=== PATIENT | female | born 1955 | race Caucasian/White ===

== ENCOUNTER → 2021-10-08 | Outpatient (CLI) | payer SELFPAY ==
[~2021-10-08] MED LIST: BAMLANIVIMAB (EUA) 700 MG, ETESEVIMAB (EUA) 1,400 MG in SODIUM CHLORIDE 0.9% 50 ML IVPB ONE; SODIUM CHLORIDE 0.9% 50 ML IVPB ONE; SODIUM CHLORIDE 0.9% 500 ML 500 ML in EMPTY BAG 1 BAG IV PRN
[2021-10-08 08:16] VITALS: RESP 16
[2021-10-08 09:08] VITALS: BP 131/64; PULSE 58; TEMP 97.8
== END ==
LOC: PROCWHC3 07:14
PROVIDERS: ATTEND Nurse Practitioner Adult Health
DX: U07.1 COVID-19 (principal)
CPT/HCPCS: 96360; J3490; M0245

== ENCOUNTER 2023-03-12 09:30 | Emergency (ER) | payer MEDICARE, OTHER ==
[2023-03-12] MEDS ORDERED: MORPHINE SULFATE 2 MG/ML SYRINGE IM STA (09:45)
[2023-03-12] MEDS ORDERED: LIDOCAINE 5% PATCH TOPICAL ONE (09:45)
[2023-03-12] MEDS ORDERED: KETOROLAC 15 MG/ML 1 ML VIAL IM STA (09:45)
--- NOTE | 2023-03-12 09:56 | ED ---
Back Pain HPI - General Chief Complaint: Back Pain/Injury Stated Complaint: Lower Back Pain Time Seen by Provider: 03/12/23 09:34 Source: patient, family, RN notes reviewed Limitations: no limitations - History of Present Illness Initial Comments: This is a 67-year-old female who presents to the emergency department for lower back pain. States that she was lifting her dog, who is fairly heavy, into a bath early this morning, when she heard a crack in her lower back. She has since had difficulty moving. Denies any loss of bowel/bladder control or saddle anesthesia. She has not taken anything for pain. Denies any history of similar symptoms in the past. Denies any fevers, chills, sore throat, cough, dyspnea, chest pain, palpitations, abdominal pain, nausea, vomiting, diarrhea, or headaches. MD Complaint: back pain - Related Data Home Medications Medication Instructions Recorded Confirmed Azithromycin 250 mg PO DAILY 10/08/21 10/08/21 dexAMETHasone [Decadron] 6 mg PO DAILY 10/08/21 10/08/21 Previous Rx's Medication Instructions Recorded Baclofen 5 mg PO Q6H PRN #20 tablet 03/12/23 predniSONE 50 mg PO DAILY 5 Days #5 tab 03/12/23 Allergies Allergy/AdvReac Type Severity Reaction Status Date / Time No Known Allergies Allergy Verified 03/12/23 09:34 Review of Systems ROS Statement: Those systems with pertinent positive or pertinent negative responses have been documented in the HPI. ROS Other: All systems not noted in ROS Statement are negative. Past Medical History Past Medical History: No Reported History History of Any Multi-Drug Resistant Organisms: None Reported Past Surgical History: Joint Replacement Smoking Status: Current every day smoker Past Alcohol Use History: None Reported Past Drug Use History: None Reported General Exam Limitations: no limitations General appearance: alert, in distress Head exam: Present: atraumatic, normocephalic, normal inspection Respiratory exam: Present: normal lung sounds bilaterally. Absent: respiratory distress, wheezes, rales, rhonchi, stridor Cardiovascular Exam: Present: regular rate, normal rhythm, normal heart sounds. Absent: systolic murmur, diastolic murmur, rubs, gallop, clicks Back exam: Present: normal inspection, tenderness (Lower lumbar spine) Neurological exam: Present: alert, oriented X3, CN II-XII intact Psychiatric exam: Present: normal affect, normal mood Skin exam: Present: warm, dry, intact, normal color. Absent: rash Course Vital Signs 03/12/23 03/12/23 03/12/23 09:32 10:54 11:36 Temperature 98 F 98.2 F 97.9 F Pulse Rate 79 68 62 Respiratory 24 16 16 Rate Blood Pressure 144/86 116/69 118/64 O2 Sat by Pulse 99 97 97 Oximetry Medical Decision Making - Medical Decision Making This is a 67-year-old female who presents to the emergency department for lower back pain. Was pt. sent in by a medical professional or institution? @ -No Did you speak to anyone other than the patient for history? @ -Her daughter Did you review nursing and triage notes? @ -Yes, and I agree, it is accurate with regards to the patient's symptoms. Were old charts reviewed? @ -No Differential Diagnosis? @ -Differential Back Pain: Strain, zoster, cauda equina syndrome, epidural abscess, vertebral osteomyelitis, discitis, fracture, subluxation, disc herniation, DJD, spinal stenosis, dissection, AAA, pancreatitis, peptic ulcer disease, pyelonephritis, kidney stone, this is not meant to be an all-inclusive list. X-rays interpreted by me (1pt min.)? @ -X-ray of the lumbar spine obtained. My interpretation reveals no acute fractures or dislocations. What testing was considered but not performed? (CT, X-rays, U/S, labs)? Why? @ -None What meds were considered but not given? Why? @ -None Did you discuss the management of the patient with other professionals? @ -No Did you reconcile home meds? @ -No Was smoking cessation discussed for >3mins.? @ -No Was critical care preformed (if so, how long)? @ -No Were there social determinants of health that impacted care today? How? (Homelessness, low income, unemployed, alcoholism, drug addiction, transportation, low edu. Level, literacy, decrease access to med. care, [facility], rehab)? @ -No Was there de-escalation of care discussed even if they declined? (Discuss DNR or withdrawal of care, Hospice)? @ -No What co-morbidities impacted this encounter? (DM, HTN, Smoking, COPD, CAD, Cancer, CVA, Hep., AIDS, mental health diagnosis, sleep apnea, morbid obesity)? @ -None Was patient admitted / discharged? @ -Discharged. Lab work obtained and found to be nonactionable. Patient has no red flag symptoms such as loss of bowel/bladder control or saddle anesthesia. Pain was controlled the emergency department with Toradol, morphine, and a lidocaine patch. She was able to ambulate without as much difficulty after medication administration. Prescription for prednisone and baclofen provided with dosing instructions reviewed. She is instructed to avoid taking over the counter antiinflammatories when taking the Prednisone and to only take it with Tylenol. Also advised that the baclofen can be sedating and she should avoid driving or operating machinery when taking this and to take it at night until she knows how it effects her. Also instructed her to apply ice for 15-20 minutes every 2-3 hours and to bend with the knees as opposed to at the waist. Undiagnosed new problem with uncertain prognosis? @ -None Drug Therapy requiring intensive monitoring for toxicity (Heparin, Nitro, Insulin, Cardizem)? @ -None Were any procedures done? @ -None Diagnosis/symptom? @ -Lumbar strain Acute, or Chronic, or Acute on Chronic? @ -Acute Uncomplicated (without systemic symptoms) or Complicated (systemic symptoms)? @ -Uncomplicated Side effects of treatment? @ -None Exacerbation, Progression, or Severe Exacerbation] @ -Not applicable Poses a threat to life or bodily function? @ -The pain may temporarily limit her mobility. Return precautions reviewed in depth, the patient is instructed to return to the emergency department with any new, worsening, or concerning symptoms. Patient verbalized understanding. This case was discussed in detail with the attending ED physician, Dr. Conroy. Presentation, findings, and treatment plan discussed in detail as well. - Radiology Data Radiology results: report reviewed, image reviewed Disposition Clinical Impression: Strain of lumbar region Disposition: HOME SELF-CARE Instructions (If sedation given, give patient instructions): Low Back Strain (ED), Acute Low Back Pain (ED) Additional Instructions: Return to the emergency department with any new, worsening, or concerning symptoms. Take the prednisone daily for 5 days. Do not take any zutt-ctq-bydayad anti-inflammatories such as ibuprofen while taking the prednisone. You may take this with Tylenol. You can take the baclofen as 1-2 tablets 3-4 times daily. Be aware that this may be sedating and you should take it at night until you know how it affects you. You should also avoid driving or operating machinery when taking this. Make sure that you get plenty of rest and bend at the knees as opposed to bending at the waist. Follow up with your primary care provider in 1-2 days. Prescriptions: Baclofen 5 mg PO Q6H PRN #20 tablet PRN Reason: Pain predniSONE 50 mg PO DAILY 5 Days #5 tab Is patient prescribed a controlled substance at d/c from ED?: No Referrals: None,Stated [Primary Care Provider] - 1-2 days
--- NOTE | 2023-03-12 10:42 | XR ---
EXAMINATION TYPE: XR lumbar spine 2 or 3V DATE OF EXAM: 03/12/2023 CLINICAL HISTORY: Low back pain. TECHNIQUE: Frontal and lateral images of the lumbar spine are obtained. COMPARISON: None. FINDINGS: Osseous structures are demineralized. There are 5 lumbar type vertebral bodies identified. The lumbar spine shows satisfactory alignment without evidence of acute fracture or dislocation. Nikolas tebral body heights and disk space heights are within normal limits. Metallic hardware from left hip surgery is partially imaged. [id number] overlying arterial vascular calcification is present. IMPRESSION: As above.
[2023-03-12 10:57] VITALS: RESP 16
[2023-03-12] MEDS ORDERED: ACET/COD 300 MG/30 MG STARTER PACK 6 TAB BTL PO STA (11:25)
[2023-03-12 11:38] VITALS: BP 118/64; PULSE 62; TEMP 97.9
== END 2023-03-12 11:38 | disposition home or self-care (01) ==
LOC: EC 09:30
DX: S39.012A Strain of muscle, fascia and tendon of lower back, initial encounter (principal); F17.200 Nicotine dependence, unspecified, uncomplicated; X50.0XXA Overexertion from strenuous movement or load, initial encounter
CPT/HCPCS: 72100; 99284; 96372 ×2; J2270; J1885

== ENCOUNTER 2023-03-18 13:26 | Emergency (ER) | payer MEDICARE ==
[2023-03-18] MEDS ORDERED: LIDOCAINE 5% PATCH TOPICAL STA (14:02)
[2023-03-18] MEDS ORDERED: MORPHINE SULFATE 2 MG/ML SYRINGE IM STA (14:02)
[2023-03-18] MEDS ORDERED: KETOROLAC 15 MG/ML 1 ML VIAL IM STA (14:03)
--- NOTE | 2023-03-18 14:53 | CT ---
EXAMINATION TYPE: CT abdomen pelvis wo con CT DLP: 358.3 mGycm, Automated exposure control for dose reduction was used. DATE OF EXAM: 03/18/2023 2:40 PM COMPARISON: Radiograph 03/12/2023 CLINICAL INDICATION:Female, 67 years old with history of pain; Back pain, lumbosacral region TECHNIQUE: Axial CT of the abdomen and pelvis. Sagittal and coronal reformats were created on a [employer] workstation. Contrast used: None Oral contrast used: without Oral Contrast FINDINGS: LOWER CHEST: Unremarkable ABDOMEN LIVER: Unremarkable GALLBLADDER AND BILE DUCTS: Unremarkable. PANCREAS: Unremarkable. SPLEEN: Unremarkable. ADRENAL GLANDS: Unremarkable. KIDNEYS AND URETERS: No evidence of hydronephrosis or renal calculus. The ureters are unremarkable. PELVIS BLADDER: Unremarkable REPRODUCTIVE: Unremarkable. ABDOMEN & PELVIS STOMACH AND BOWEL: No evidence of bowel obstruction. PERITONEUM/RETROPERITONEUM: No evidence of pneumoperitoneum or free fluid. VASCULATURE: Moderate atherosclerotic calcifications are present throughout the abdominal aorta and i ts branches. No evidence of aortic aneurysm. MUSCULOSKELETAL: Compression deformity of the L5 vertebrae with cortical buckling. There is at least 25% height loss. Minimal posterior retrolisthesis of 3 mm. The neural foramen and spinal canal appear patent to cerebral hip fixation hardware appears intact. LYMPH NODES: No gross evidence for lymphadenopathy. SOFT TISSUE/ABDOMINAL WALL: Unremarkable IMPRESSION: Acute/subacute L5 vertebral body compression fracture with at least 25% height loss. No significant s charo canal neural foraminal stenosis. Finding appears new from 03/12/2023.
[2023-03-18 15:10] VITALS: BP 150/78; PULSE 64; RESP 16; TEMP 98.1
--- NOTE | 2023-03-18 15:17 | ED ---
General Adult HPI - General Chief complaint: Back Pain/Injury Stated complaint: Back pain Time Seen by Provider: 03/18/23 13:49 Source: patient, RN notes reviewed Mode of arrival: ambulatory Limitations: no limitations - History of Present Illness Initial comments: 67-year-old female presents emergency Department with chief complaint of low back pain. She states that it started after she bent over and picked her dog up on 03/12/23. She was seen here for the same problem. X-ray lumbar spine at that time was within normal limits. Patient was given baclofen at that time which did not help with her pain. She states that she was given a starter pack for Tylenol 3s which helped her pain. She states that she is unable to lay down because of the pain. She states the pain is worse with walking and radiates down her right leg. Denies fever, numbness, tingling. Denies loss of bowel or bladder function, denies saddle anesthesia. - Related Data Home Medications Medication Instructions Recorded Confirmed Azithromycin 250 mg PO DAILY 10/08/21 10/08/21 dexAMETHasone [Decadron] 6 mg PO DAILY 10/08/21 10/08/21 Previous Rx's Medication Instructions Recorded Baclofen 5 mg PO Q6H PRN #20 tablet 03/12/23 predniSONE 50 mg PO DAILY 5 Days #5 tab 03/12/23 Acetaminophen-Codeine 300-30mg 1 tab PO Q4H PRN 3 Days #18 tablet 03/18/23 [Tylenol w/codeine #3] Lidocaine 5% Patch [Lidoderm 5% 1 patch TOPICAL DAILY #5 patch 03/18/23 Patch] Allergies Allergy/AdvReac Type Severity Reaction Status Date / Time No Known Allergies Allergy Verified 03/18/23 13:45 Review of Systems ROS Statement: Those systems with pertinent positive or pertinent negative responses have been documented in the HPI. ROS Other: All systems not noted in ROS Statement are negative. Past Medical History Past Medical History: No Reported History History of Any Multi-Drug Resistant Organisms: None Reported Past Surgical History: Joint Replacement Past Psychological History: No Psychological Hx Reported Smoking Status: Current every day smoker Past Alcohol Use History: None Reported Past Drug Use History: None Reported General Exam Limitations: no limitations General appearance: alert, in no apparent distress Head exam: Present: atraumatic, normocephalic, normal inspection Eye exam: Present: normal appearance, PERRL, EOMI. Absent: scleral icterus, conjunctival injection, periorbital swelling ENT exam: Present: normal exam, mucous membranes moist Neck exam: Present: normal inspection. Absent: tenderness, meningismus, lymphadenopathy Respiratory exam: Present: normal lung sounds bilaterally. Absent: respiratory distress, wheezes, rales, rhonchi, stridor Cardiovascular Exam: Present: regular rate, normal rhythm, normal heart sounds. Absent: systolic murmur, diastolic murmur, rubs, gallop, clicks GI/Abdominal exam: Present: soft, normal bowel sounds. Absent: distended, tenderness, guarding, rebound, rigid Extremities exam: Present: normal inspection, full ROM, normal capillary refill. Absent: tenderness, pedal edema, joint swelling, calf tenderness Back exam: Present: vertebral tenderness (Point tenderness over L-spine). Absent: full ROM Neurological exam: Present: alert, oriented X3, CN II-XII intact Psychiatric exam: Present: normal affect, normal mood Skin exam: Present: warm, dry, intact, normal color. Absent: rash Course Vital Signs 03/18/23 03/18/23 13:45 15:09 Temperature 98.2 F 98.1 F Pulse Rate 70 64 Respiratory 18 16 Rate Blood Pressure 176/80 150/78 O2 Sat by Pulse 95 96 Oximetry Medical Decision Making - Medical Decision Making Was pt. sent in by a medical professional or institution (Dr. PA, [employer], urgent care, hospital, or fpc...) When possible be specific @ -No Did you speak to anyone other than the patient for history (EMS, parent, family, police, friend...)? What history was obtained from this source @ -No Did you review nursing and triage notes (agree or disagree)? Why? @ -I reviewed and agree with nursing and triage notes Were old charts reviewed (outside hosp., previous admission, EMS record, old EKG, old radiological studies, urgent care reports/EKG's, fpc records)? Report findings @ -Reports from prior visit on 03/12 reviewed Differential Diagnosis (chest pain, altered mental status, abdominal pain women, abdominal pain men, vaginal bleeding, weakness, fever, dyspnea, syncope, headache, dizziness, GI bleed, back pain, seizure, CVA, palpatations, mental health, musculoskeletal)? @ -Differential Musculoskeletal Muscular strain, contusion, ligament sprain, fracture, arthritis, septic arthritis, bursitis, cellulitis, muscle spasm, nerve compression, DVT, arterial occlusion, herpes zoster, electrolyte abnormality, tumor.... This is not meant to be in all inclusive list EKG interpreted by me (3pts min.). @ -None X-rays interpreted by me (1pt min.). @ -None done CT interpreted by me (1pt min.). @ -CT abdomen and pelvis was obtained which showed L5 compression fracture with 25% height loss U/S interpreted by me (1pt. min.). @ -None done What testing was considered but not performed or refused? (CT, X-rays, U/S, labs)? Why? @ -None What meds were considered but not given or refused? Why? @ -None Did you discuss the management of the patient with other professionals (professionals i.e. , PA, [employer], lab, RT, psych nurse, director of social services, steep tender, teacher, health promotion officer, social work case manager)? Give summary @ -No Was smoking cessation discussed for >3mins.? @ -No Was critical care preformed (if so, how long)? @ -No Were there social determinants of health that impacted care today? How? (Homelessness, low income, unemployed, alcoholism, drug addiction, transportation, low edu. Level, literacy, decrease access to med. care, correction, rehab)? @ -No Was there de-escalation of care discussed even if they declined (Discuss DNR or withdrawal of care, Hospice)? DNR status @ -No What co-morbidities impacted this encounter? (DM, HTN, Smoking, COPD, CAD, Cancer, CVA, ARF, Chemo, Hep., AIDS, mental health diagnosis, sleep apnea, morbid obesity)? @ -None Was patient admitted / discharged? Hospital course, mention meds given and route, prescriptions, significant lab abnormalities, going to OR and other pertinent info. @ -Discharged. Patient sent in the emergency department with back pain 1 week. Patient administered 2 mg IM morphine and 15 mg of Toradol Computed tomography scan of the abdomen and pelvis showed L5 compression fracture with 25% height loss. Patient was given prescription for Tylenol #3 x3 days. Patient advised to follow-up with orthopedic and her primary care provider. Undiagnosed new problem with uncertain prognosis? @ -No Drug Therapy requiring intensive monitoring for toxicity (Heparin, Nitro, Insulin, Cardizem)? @ -No Were any procedures done? @ -No Diagnosis/symptom? @ -Compression fracture Acute, or Chronic, or Acute on Chronic? @ -Acute Uncomplicated (without systemic symptoms) or Complicated (systemic symptoms)? @ -Uncomplicated Side effects of treatment? @ -No Exacerbation, Progression, or Severe Exacerbation? @ -No Poses a threat to life or bodily function? How? (Chest pain, [place], [place], pneumonia, PE, COPD, DKA, ARF, appy, cholecystitis, CVA, Diverticulitis, Homicidal, Suicidal, threat to staff... and all critical care pts) @ -No Disposition Clinical Impression: Compressed spine fracture Disposition: HOME SELF-CARE Condition: Stable Instructions (If sedation given, give patient instructions): Acute Low Back Pain (ED) Additional Instructions: Please return to the Emergency Department if symptoms worsen or any other concerns. Prescriptions: Lidocaine 5% Patch [Lidoderm 5% Patch] 1 patch TOPICAL DAILY #5 patch Acetaminophen-Codeine 300-30mg [Tylenol w/codeine #3] 1 tab PO Q4H PRN 3 Days #18 tablet PRN Reason: Pain Is patient prescribed a controlled substance at d/c from ED?: Yes If prescribed controlled substance>3 days was MAPS reviewed?: Prescribed <3 Days Referrals: None,Stated [Primary Care Provider] - 1-2 days Brianna Brown DO [Doctor of Osteopathic Medicine] - 1-2 days Time of Disposition: 15:17
== END 2023-03-18 15:31 | disposition home or self-care (01) ==
LOC: EC 13:26
DX: S32.050A Wedge compression fracture of fifth lumbar vertebra, initial encounter for closed fracture (principal); F17.210 Nicotine dependence, cigarettes, uncomplicated; X50.0XXA Overexertion from strenuous movement or load, initial encounter; X50.1XXA Overexertion from prolonged static or awkward postures, initial encounter; Y93.K9 Activity, other involving animal care
CPT/HCPCS: 74176; 99284; 96372; J2270; J1885

== ENCOUNTER 2024-05-26 11:44 | Emergency (ER) | payer MEDICARE ==
[2024-05-26 11:47] VITALS: TEMP 97.3
[2024-05-26 12:37] LABS: Basophils # (A) 0.1 k/uL (0-0.2); Basophils % (A) 0 %; Eosinophils # (A) 0.4 k/uL (0-0.7); Eosinophils % (A) 3 %; HCT 48.3 % (34.0-46.0); HGB 15.2 gm/dL (11.4-16.0); Lymphocytes # (A) 1.3 k/uL (1.0-4.8); Lymphocytes % (A) 11 %; MCH 30.9 pg (25.0-35.0); MCHC 31.4 g/dL (31.0-37.0); MCV 98.6 fL (80.0-100.0); Mean Platelet Volume 7.6; Monocytes # (A) 0.7 k/uL (0-1.0); Monocytes % (A) 6 %; Neutrophils # (A) 9.2 k/uL (1.3-7.7); Neutrophils % (A) 78 %; Platelet Count 486 k/uL (150-450); RDW 12.8 % (11.5-15.5); WBC 11.8 k/uL (3.8-10.6)
[2024-05-26 12:56] LABS: ALT 13 U/L (4-34); AST 25 U/L (14-36); African American GFR (CKD) >90 (>60 ml/min/1.73 sqM); Albumin 4.5 g/dL (3.5-5.0); Alkaline Phosphatase 114 U/L (38-126); Anion Gap 5 mmol/L; Blood Urea Nitrogen 10 mg/dL (7-17); Calcium 9.7 mg/dL (8.4-10.2); Carbon Dioxide 32 mmol/L (22-30); Chloride 102 mmol/L (98-107); Glucose 92 mg/dL (74-99); Non-African American GFR(CKD) >90 (>60 ml/min/1.73 sqM); Potassium 4.7 mmol/L (3.5-5.1); Sodium 139 mmol/L (137-145); Total Bilirubin 0.6 mg/dL (0.2-1.3); Total Protein 7.6 g/dL (6.3-8.2)
--- NOTE | 2024-05-26 12:59 | CT ---
EXAMINATION TYPE: CT abdomen pelvis wo con DATE OF EXAM: 05/26/2024 COMPARISON: 03/18/2023 HISTORY: 69-year-old female upper abd pain CT DLP: 235.5 mGycm. Automated exposure control for dose reduction was used. TECHNIQUE: Contiguous axial scanning of the abdomen and pelvis without IV contrast. Coronal and sagit jessica reconstructions performed. FINDINGS: The heart is normal size without pericardial effusion. Some strandy atelectasis in the lower lungs wi thout pleural effusion. Ectasia of the lower descending thoracic aorta 2.9 cm. Noncontrast appearance of the liver, gallbladder, adrenal glands, kidneys, spleen, and pancreas show no gross abnormality. Markedly limited assessment due to paucity of intra-abdominal fat and lack of c ontrast. No dilated small bowel, free fluid, or free air is seen. Again, very limited assessment due to crowde d and nonopacified structures. There appear to be some air-fluid level involving borderline distended small bowel in the right upper pelvis. Distended up to 2.8 cm. Probably transient. Segments of the normal caliber appendix are note d. Scattered moderate stool. Bladder collapsed. Uterus anteverted. Unable to delineate uterus from ovaries and clustered bowel or lymph nodes. Metal artifact related to the patient's left hip total arthroplasty. There is a new inferior endplate fracture of T12 resulting in minimal anterior wedging. Minimal 15% a nterior height loss. No retropulsion into the spinal canal. Mild paravertebral soft tissue swelling. Mild compression deformity of L5 remains unchanged. IMPRESSION: 1. Acute inferior endplate fracture of T12 resulting in minimal anterior wedging, 15% anterior heigh t loss. No retropulsion into the spinal canal. Mild paravertebral soft tissue swelling. 2. Borderline distended small bowel in the right lower abdomen with air-fluid level. This could be t ransient or could represent a regional ileus/enteritis. 3. Limited, noncontrast exam.
[2024-05-26] MEDS: KETOROLAC 15 MG/ML 1 ML VIAL IVP STA (13:03)
--- NOTE | 2024-05-26 13:13 | ED ---
General Adult HPI - General Chief complaint: Abdominal Pain Stated complaint: Abd pain Time Seen by Provider: 05/26/24 12:01 Source: patient, RN notes reviewed, old records reviewed Mode of arrival: ambulatory Limitations: no limitations - History of Present Illness Initial comments: 69-year-old female presenting with upper abdominal pain which began 3 days ago. This occurred after the patient bent over. She denies associated vomiting. She is having normal bowel movements. She does have previous history of fracture in her back. She denies worsening back pain currently. Denies chest pain or dyspnea - Related Data Home Medications Medication Instructions Recorded Confirmed Azithromycin 250 mg PO DAILY 10/08/21 10/08/21 dexAMETHasone [Decadron] 6 mg PO DAILY 10/08/21 10/08/21 Previous Rx's Medication Instructions Recorded Baclofen 5 mg PO Q6H PRN #20 tablet 03/12/23 predniSONE 50 mg PO DAILY 5 Days #5 tab 03/12/23 Acetaminophen-Codeine 300-30mg 1 tab PO Q4H PRN 3 Days #18 tablet 03/18/23 [Tylenol w/codeine #3] Lidocaine 5% Patch [Lidoderm 5% 1 patch TOPICAL DAILY #5 patch 03/18/23 Patch] HYDROcodone/APAP 5-325MG [[place] 1 tab PO Q6HR PRN #12 tab 05/26/24 5-325] Allergies Allergy/AdvReac Type Severity Reaction Status Date / Time No Known Allergies Allergy Verified 05/26/24 11:47 Review of Systems ROS Statement: Those systems with pertinent positive or pertinent negative responses have been documented in the HPI. ROS Other: All systems not noted in ROS Statement are negative. Past Medical History Past Medical History: No Reported History History of Any Multi-Drug Resistant Organisms: None Reported Past Surgical History: Joint Replacement Past Psychological History: No Psychological Hx Reported Smoking Status: Current every day smoker Past Alcohol Use History: None Reported Past Drug Use History: None Reported General Exam Limitations: no limitations General appearance: alert, in no apparent distress Head exam: Present: atraumatic, normocephalic Eye exam: Present: normal appearance, PERRL ENT exam: Present: normal exam Neck exam: Present: normal inspection. Absent: tenderness, meningismus Respiratory exam: Present: decreased breath sounds. Absent: respiratory distress Cardiovascular Exam: Present: regular rate, normal rhythm GI/Abdominal exam: Present: soft, tenderness (epigastric). Absent: distended Extremities exam: Present: normal inspection Back exam: Absent: vertebral tenderness Neurological exam: Present: alert, oriented X3, CN II-XII intact. Absent: motor sensory deficit Psychiatric exam: Present: normal affect, normal mood Skin exam: Present: warm, dry, intact. Absent: cyanosis, diaphoretic Course Vital Signs 05/26/24 11:45 Temperature 97.3 F L Pulse Rate 83 Respiratory 22 Rate Blood Pressure 179/91 O2 Sat by Pulse 96 Oximetry - Reevaluation(s) Reevaluation #1: 05/26/24 13:42 revaluated, symptoms improved with medication. Medical Decision Making - Medical Decision Making Was pt. sent in by a medical professional or institution (MAUREEN Winchester, SENIOR OPERATIONS ANALYST, urgent care, hospital, or intermediate...) When possible be specific @ -No Did you speak to anyone other than the patient for history (EMS, parent, family, police, friend...)? What history was obtained from this source @ -No Did you review nursing and triage notes (agree or disagree)? Why? @ -I reviewed and agree with nursing and triage notes Were old charts reviewed (outside hosp., previous admission, EMS record, old EKG, old radiological studies, urgent care reports/EKG's, intermediate records)? Report findings @ -No old charts were reviewed Differential chest pain EKG interpreted by me (3pts min.). @ -Sinus rhythm rate of 65, FL interval 155, QRS duration 86, QTc [address] segment elevation. X-rays interpreted by me (1pt min.). @ -None done CT interpreted by me (1pt min.). @CT abdomen/pelvis showing compression fracture T12 which does correlate with patient's symptoms. No retropulsion, 15% height loss. U/S interpreted by me (1pt. min.). @ -None done What testing was considered but not performed or refused? (CT, X-rays, U/S, labs)? Why? @ -None What meds were considered but not given or refused? Why? @ -None Did you discuss the management of the patient with other professionals (professionals i.e. MAUREEN Winchester, SENIOR OPERATIONS ANALYST, lab, RT, psych nurse, social scientist, general neurologist, teacher, weapons electrical engineering officer, disease case manager)? Give summary @ -No Was smoking cessation discussed for >3mins.? @ -No Was critical care preformed (if so, how long)? @ -No Were there social determinants of health that impacted care today? How? (Homel essness, low income, unemployed, alcoholism, drug addiction, transportation, low edu. Level, literacy, decrease access to med. care, half-way, rehab)? @ -No Was there de-escalation of care discussed even if they declined (Discuss DNR or withdrawal of care, Hospice)? DNR status @ -No What co-morbidities impacted this encounter? (DM, HTN, Smoking, COPD, CAD, Cancer, CVA, ARF, Chemo, Hep., AIDS, mental health diagnosis, sleep apnea, morbid obesity)? @ -None Was patient admitted / discharged? Hospital course, mention meds given and route, prescriptions, significant lab abnormalities, going to OR and other pertinent info. @ -69-year-old female with upper abdominal pain wrapping around after a bending episode 3 days prior. Her symptoms were concerning for the possibility of fracture in the back with recent history of lumbar compression fracture. I did obtain full workup including cardiac workup, laboratory testing, urinalysis and CT. She has a compression fracture of T12 which correlates with symptoms. Her pain is controlled in the emergency department as she has follow-up with orthope dics. Undiagnosed new problem with uncertain prognosis? @ -No Drug Therapy requiring intensive monitoring for toxicity (Heparin, Nitro, Insulin, Cardizem)? @ -No Were any procedures done? @ -No Diagnosis/symptom? @Compression fracture T12 Acute, or Chronic, or Acute on Chronic? @ -Acute Uncomplicated (without systemic symptoms) or Complicated (systemic symptoms)? @ -Default Side effects of treatment? @ -No Exacerbation, Progression, or Severe Exacerbation? @ -No Poses a threat to life or bodily function? How? (Chest pain, USA, IA, pneumonia, PE, COPD, DKA, ARF, appy, cholecystitis, CVA, Diverticulitis, Homicidal, Suicidal, threat to staff... and all critical care pts) @ -No - Lab Data Result diagrams: 05/26/24 12:12 05/26/24 12:12 Lab Results 05/26/24 05/26/24 05/26/24 Range/Units 12:12 12:12 12:12 WBC 11.8 H (3.8-10.6) k/uL RBC 4.90 (3.80-5.40) m/uL Hgb 15.2 (11.4-16.0) gm/dL Hct 48.3 H (34.0-46.0) % MCV 98.6 (80.0-100.0) fL MCH 30.9 (25.0-35.0) pg MCHC 31.4 (31.0-37.0) g/dL RDW 12.8 (11.5-15.5) % Plt Count 486 H (150-450) k/uL MPV 7.6 Neutrophils % 78 % Lymphocytes % 11 % Monocytes % 6 % Eosinophils % 3 % Basophils % 0 % Neutrophils # 9.2 H (1.3-7.7) k/uL Lymphocytes # 1.3 (1.0-4.8) k/uL Monocytes # 0.7 (0-1.0) k/uL Eosinophils # 0.4 (0-0.7) k/uL Basophils # 0.1 (0-0.2) k/uL Sodium 139 (137-145) mmol/L Potassium 4.7 (3.5-5.1) mmol/L Chloride 102 (98-107) mmol/L Carbon Dioxide 32 H (22-30) mmol/L Anion Gap 5 mmol/L BUN 10 (7-17) mg/dL Creatinine 0.53 (0.52-1.04) mg/dL Est GFR (CKD-EPI)AfAm >90 (>60 ml/min/1.73 sqM) Est GFR (CKD-EPI)NonAf >90 (>60 ml/min/1.73 sqM) Glucose 92 (74-99) mg/dL Calcium 9.7 (8.4-10.2) mg/dL Magnesium 2.0 (1.6-2.3) mg/dL Total Bilirubin 0.6 (0.2-1.3) mg/dL AST 25 (14-36) U/L ALT 13 (4-34) U/L Alkaline Phosphatase 114 (38-126) U/L Troponin I (0.000-0.034) ng/mL Total Protein 7.6 (6.3-8.2) g/dL Albumin 4.5 (3.5-5.0) g/dL Urine Color Colorless Urine Appearance Clear (Clear) Urine pH 7.0 (5.0-8.0) Ur Specific [place] 1.005 (1.001-1.035) Urine Protein Negative (Negative) Urine Glucose (UA) Negative (Negative) Urine Ketones Negative (Negative) Urine Blood Negative (Negative) Urine Nitrite Negative (Negative) Urine Bilirubin Negative (Negative) Urine Urobilinogen <2.0 (<2.0) mg/dL Ur Leukocyte Esterase Trace H (Negative) Urine WBC 3 (0-5) /hpf Ur Squamous Epith Cells <1 (0-4) /hpf Urine Bacteria Rare H (None) /hpf 05/26/24 Range/Units 12:12 WBC (3.8-10.6) k/uL RBC (3.80-5.40) m/uL Hgb (11.4-16.0) gm/dL Hct (34.0-46.0) % MCV (80.0-100.0) fL MCH (25.0-35.0) pg MCHC (31.0-37.0) g/dL RDW (11.5-15.5) % Plt Count (150-450) k/uL MPV Neutrophils % % Lymphocytes % % Monocytes % % Eosinophils % % Basophils % % Neutrophils # (1.3-7.7) k/uL Lymphocytes # (1.0-4.8) k/uL Monocytes # (0-1.0) k/uL Eosinophils # (0-0.7) k/uL Basophils # (0-0.2) k/uL Sodium (137-145) mmol/L Potassium (3.5-5.1) mmol/L Chloride (98-107) mmol/L Carbon Dioxide (22-30) mmol/L Anion Gap mmol/L BUN (7-17) mg/dL Creatinine (0.52-1.04) mg/dL Est GFR (CKD-EPI)AfAm (>60 ml/min/1.73 sqM) Est GFR (CKD-EPI)NonAf (>60 ml/min/1.73 sqM) Glucose (74-99) mg/dL Calcium (8.4-10.2) mg/dL Magnesium (1.6-2.3) mg/dL Total Bilirubin (0.2-1.3) mg/dL AST (14-36) U/L ALT (4-34) U/L Alkaline Phosphatase (38-126) U/L Troponin I <0.012 (0.000-0.034) ng/mL Total Protein (6.3-8.2) g/dL Albumin (3.5-5.0) g/dL Urine Color Urine Appearance (Clear) Urine pH (5.0-8.0) Ur Specific [place] (1.001-1.035) Urine Protein (Negative) Urine Glucose (UA) (Negative) Urine Ketones (Negative) Urine Blood (Negative) Urine Nitrite (Negative) Urine Bilirubin (Negative) Urine Urobilinogen (<2.0) mg/dL Ur Leukocyte Esterase (Negative) Urine WBC (0-5) /hpf Ur Squamous Epith Cells (0-4) /hpf Urine Bacteria (None) /hpf Disposition Clinical Impression: Compression fracture Disposition: HOME SELF-CARE Condition: Fair Instructions (If sedation given, give patient instructions): Vertebral Compression Fracture (ED) Prescriptions: HYDROcodone/APAP 5-325MG [[place] 5-325] 1 tab PO Q6HR PRN #12 tab PRN Reason: Pain Is patient prescribed a controlled substance at d/c from ED?: No Referrals: None,Stated [Primary Care Provider] - 1-2 days Brianna Brown DO [Doctor of Osteopathic Medicine] - 1-2 days Time of Disposition: 13:45
[2024-05-26 13:20] LABS: Appearance,Urine Clear (Clear); Bacteria,Urine Rare /hpf; Bilirubin,Urine Negative (Negative); Blood,Urine Negative (Negative); Color,Urine Colorless; Glucose,Urine (UA) Negative (Negative); Ketones,Urine Negative (Negative); Leukocyte Esterase,Urine Trace (Negative); Nitrite,Urine Negative (Negative); Protein,Urine Negative (Negative); Specific Gravity,Urine 1.005 (1.001-1.035); Squamous Epithelial Cell,Urine <1 /hpf (0-4); Urobilinogen,Urine <2.0 mg/dL (<2.0); WBC,Urine 3 /hpf (0-5)
[2024-05-26 14:09] VITALS: BP 157/82; PULSE 64; RESP 16
== END 2024-05-26 14:09 | disposition home or self-care (01) ==
LOC: EC 11:44
DX: M48.54XA Collapsed vertebra, not elsewhere classified, thoracic region, initial encounter for fracture (principal); F17.200 Nicotine dependence, unspecified, uncomplicated
CPT/HCPCS: 36415; 93005; 80053; 83735; 84484; 85025; 81001; 74176; 99284; 96374; J1885

== ENCOUNTER 2025-01-18 19:48 | Observation (INO) | payer MEDICARE ==
[2025-01-18] MEDS: MORPHINE SULFATE 4 MG/ML SYRINGE IV STA (20:22)
[2025-01-18 20:26] LABS: Basophils # (A) 0.1 k/uL (0-0.2); Basophils % (A) 0 %; Eosinophils # (A) 0.4 k/uL (0-0.7); Eosinophils % (A) 3 %; HCT 44.8 % (34.0-46.0); HGB 13.9 gm/dL (11.4-16.0); Lymphocytes # (A) 2.5 k/uL (1.0-4.8); Lymphocytes % (A) 19 %; MCH 30.1 pg (25.0-35.0); MCHC 31.1 g/dL (31.0-37.0); MCV 96.7 fL (80.0-100.0); Mean Platelet Volume 7.8; Monocytes # (A) 0.9 k/uL (0-1.0); Monocytes % (A) 7 %; Neutrophils # (A) 9.1 k/uL (1.3-7.7); Neutrophils % (A) 69 %; Platelet Count 503 k/uL (150-450); RBC 4.64 m/uL (3.80-5.40); RDW 13.6 % (11.5-15.5); WBC 13.2 k/uL (3.8-10.6)
--- NOTE | 2025-01-18 20:31 | ED ---
Chest Pain HPI - General Chief Complaint: Chest Pain Stated Complaint: Chest Pain, Shortness of Breath, Back Pain Time Seen by Provider: 01/18/25 19:56 Source: patient Mode of arrival: wheelchair - History of Present Illness Initial Comments: This patient is a 69-year-old woman who presents to have evaluation of chest pain. She indicates the substernal area. She states that it came on proximately 2 hours before arrival here. She indicates that it is sharp and severe. It is worse with taking a deep breath then. She feels short of breath because it limits her breathing. She states that she had felt relatively well prior to the onset of the pain. She has not noted any associated symptoms. She denies fever or chills. No cough. No nausea, vomiting, diaphoresis, pal pitations or syncope. MD Complaint: chest pain Onset/Timin -: hour(s) Onset: during rest Pain Location: substernal Pain Radiation: back Severity: severe Quality: sharp Consistency: constant Improves With: nothing Worsens With: inspiration Treatments Prior to Arrival: none - Related Data Home Medications Medication Instructions Recorded Confirmed Albuterol Inhaler [Ventolin Hfa 2 puff INHALATION RT-Q4H PRN 01/18/25 01/18/25 Inhaler] Allergies Allergy/AdvReac Type Severity Reaction Status Date / Time No Known Allergies Allergy Verified 01/18/25 20:43 Review of Systems ROS Statement: Those systems with pertinent positive or pertinent negative responses have been documented in the HPI. ROS Other: All systems not noted in ROS Statement are negative. Constitutional: Denies: fever, chills, weakness Respiratory: Reports: as per HPI, dyspnea. Denies: cough, wheezes, hemoptysis Cardiovascular: Reports: chest pain. Denies: palpitations, orthopnea, edema, syncope Gastrointestinal: Denies: abdominal pain, nausea, vomiting, diarrhea Genitourinary: Denies: dysuria, hematuria Musculoskeletal: Denies: back pain Skin: Denies: rash Neurological: Denies: headache, weakness EKG Findings - EKG Results: EKG: interpreted by DOE, sinus rhythm (Rate 82 bpm), normal axis, normal QRS, normal ST/T Past Medical History Past Medical History: No Reported History History of Any Multi-Drug Resistant Organisms: None Reported Past Surgical History: Joint Replacement Past Psychological History: No Psychological Hx Reported Smoking Status: Current every day smoker Past Alcohol Use History: None Reported Past Drug Use History: None Reported General Exam General appearance: alert, in no apparent distress Head exam: Present: atraumatic, normocephalic Eye exam: Present: normal appearance Neck exam: Present: normal inspection, full ROM Respiratory exam: Present: wheezes. Absent: respiratory distress, rales, rhonchi, stridor, accessory muscle use Cardiovascular Exam: Present: regular rate, normal rhythm, normal heart sounds. Absent: systolic murmur, diastolic murmur, rubs, gallop GI/Abdominal exam: Present: soft. Absent: distended, tenderness, guarding, rebound, rigid, mass Extremities exam: Present: normal inspection, normal capillary refill. Absent: pedal edema, calf tenderness Back exam: Present: normal inspection. Absent: CVA tenderness (R), CVA tenderness (L) Neurological exam: Present: alert Skin exam: Present: warm, dry, intact, normal color. Absent: rash Course Vital Signs 01/18/25 01/18/25 01/18/25 19:50 20:20 22:00 Temperature 97.1 F L Pulse Rate 90 82 77 Respiratory 18 24 16 Rate Blood Pressure 169/87 137/76 117/68 O2 Sat by Pulse 95 93 L 93 L Oximetry Chest Pain MDM - MDM The patient had chest x-ray that I interpreted as negative for acute infiltrate, pneumothorax, congestive heart failure. The patient had CT scan of the chest that I interpreted as negative for pulmonary embolism, negative for acute infiltrate or pneumothorax. Disposition Referrals: Katelin Yoon MD [Primary Care Provider] - 1-2 days
[2025-01-18 20:42] LABS: ALT 17 U/L (4-34); AST 26 U/L (14-36); African American GFR (CKD) >90 (>60 ml/min/1.73 sqM); Albumin 4.6 g/dL (3.5-5.0); Alkaline Phosphatase 116 U/L (38-126); Anion Gap 12 mmol/L; Blood Urea Nitrogen 17 mg/dL (7-17); Calcium 9.3 mg/dL (8.4-10.2); Carbon Dioxide 25 mmol/L (22-30); Chloride 101 mmol/L (98-107); Glucose 95 mg/dL (74-99); INR 0.9 (<1.2); Magnesium 2.1 mg/dL (1.6-2.3); Non-African American GFR(CKD) 89 (>60 ml/min/1.73 sqM); Partial Thromboplastin Time 23.8 sec (22.0-30.0); Potassium 5.1 mmol/L (3.5-5.1); Prothrombin Time 10.3 sec (10.0-12.5); Sodium 138 mmol/L (137-145); Total Bilirubin 0.4 mg/dL (0.2-1.3); Total Protein 7.7 g/dL (6.3-8.2)
--- NOTE | 2025-01-18 20:44 | XR ---
EXAMINATION TYPE: XR chest 1V portable DATE OF EXAM: 01/18/2025 8:39 PM COMPARISON: None. CLINICAL INDICATION: Female, 69 years old with history of chest pain, TECHNIQUE: XR chest 1V portable views of the chest are obtained. FINDINGS: Demonstrated are scattered senescent parenchymal change. There is no evidence for focal infiltrate. The heart is stable. Hilar and mediastinal structures are within normal limits. Degenerative changes are seen of the dorsal spine. IMPRESSION: 1. Chronic changes without evidence for acute pulmonary disease. [facility], , 01/18/2025 8:41 PM
[2025-01-18 20:49] LABS: NT-Pro-B-Type Natriuretic Pept 133 pg/mL
[2025-01-18] MEDS: MORPHINE SULFATE 4 MG/ML SYRINGE IVP STA (20:54)
[2025-01-18] MEDS: ASPIRIN 81 MG PO STA (21:13)
--- NOTE | 2025-01-18 21:23 | CT ---
EXAMINATION TYPE: CT angio chest DATE OF EXAM: 01/18/2025 9:11 PM COMPARISON: None. CLINICAL INDICATION: Female, 69 years old with history of chest pain, Complaining of sternal chest pa in, radiates to her back and SOB. Patient states it started about 2 hours ago., TECHNIQUE: Axial CT was performed with sagittal and coronal reformats. 3D reconstruction and/or MIP imaging was also performed on a separate workstation. IV CONTRAST: with IV Contrast, patient injected with 100 ml mL of . (None if empty) CT DLP: 364.8 mGycm, Automated exposure control for dose reduction was used. FINDINGS: PULMONARY ARTERIES: The pulmonary arteries and their major tributaries are patent. I do not see veronica dence for sizable filling defect to suggest pulmonary embolic process. LUNGS: The lungs are clear and free of infiltrate. Moderate emphysematous changes. No evidence for at electasis. No pulmonary nodule or mass is detected. No pleural effusion. MEDIASTINUM: The thoracic aorta is of normal caliber. No evidence of aneurysm or dissection. The hear t is mildly enlarged. No evidence for mediastinal mass. No mediastinal lymph nodes greater than 1c m. HILAR STRUCTURES: No evidence for mass. No hilar lymph nodes greater than 1 cm. UPPER ABDOMEN: No significant abnormality is seen. Chronic appearing lower thoracic spine compressio n fracture. IMPRESSION: 1. No evidence for Pulmonary embolism at this time. 2. No evidence for thoracic aortic aneurysm or dissection. [facility], , 01/18/2025 9:21 PM
[2025-01-18] MEDS ORDERED: NITROGLYCERIN SL TABS 0.4 MG TAB SUBLINGUAL PRN (22:24)
[2025-01-18] MEDS ORDERED: ALBUTEROL NEBULIZED 2.5 MG/3 ML INHALATION PRN (22:26)
[2025-01-18] MEDS: ALBUTEROL NEBULIZED 2.5 MG/3 ML INHALATION STA (22:26)
--- NOTE | 2025-01-18 23:56 | P.HPIM ---
History of Present Illness H&P Date: 01/18/25 Patient is a 69-year-old female with a PMH of asthma and tobacco abuse who presents to the emergency room with complaints of chest discomfort. Patient reports that she has been experiencing sharp and achy chest and back discomfort for the past 6 hours. Reports that the pain started suddenly at home, somewhat pleuritic in nature, 8 out of 10 at maximal intensity, intermittent, possibly related to exertion, occurring both in her mid upper back as well as her substernal region. Does report associated exertional dyspnea worsening over the past few days. Denies experiencing fever, chills, cough, nausea, vomiting, abdominal pain, diarrhea. Does report chronic intermittent chest discomfort. In the emergency room a chest CTA was unremarkable with EKG showing sinus rhythm at [address]/T wave changes noted as reviewed by me. Laboratory evaluation did reveal WBC count 13.2, with platelet count 503, D-dimer 1.11, sodium 138, potassium 5.1, BUN 17, creatinine 0.7 with troponin less than 0.012. ED documentation reviewed and case discussed with ED provider. Review of systems: Pertinent positives and negatives as discussed in HPI, a complete review of systems was performed and all other systems are negative. Physical examination: Vital signs reviewed General: non toxic, no distress, appears at stated age, sitting Derm: no unusual rashes/lesions, warm Head: atraumatic, normocephalic, symmetric Eyes: EOMI, no lid lag, anicteric sclera, pupils equal round reactive to light ENT: Nose and ears atraumatic Neck: No cervical lymphadenopathy, trachea midline, supple Mouth: no lip lesion, mucus membranes moist Cardiovascular: S1S2 reg, no murmur, positive dorsalis pedis pulse bilateral, no edema Lungs: CTA bilateral, no rhonchi, no rales, no accessory muscle use Abdominal: soft, nontender to palpation, no guarding Ext: muscle strength 5 out of 5 in all 4 extremities grossly, no gross muscle atrophy, no contractures, Neuro: CN II-XI grossly intact, no gross focal neuro deficits Psych: Alert, oriented, appropriate affect Assessment: Atypical chest pain, rule out ACS Leukocytosis, likely secondary to acute stressor with no signs of active infection at this time Thrombocytosis Imaging: In the emergency room a chest CTA was unremarkable with EKG showing sinus rhythm at [address]/T wave changes noted as reviewed by me. Data Review: Laboratory evaluation did reveal WBC count 13.2, with platelet count 503, D- dimer 1.11, sodium 138, potassium 5.1, BUN 17, creatinine 0.7 with troponin less than 0.012. Plan: Cardiac monitoring Cardiology consult Trend troponin Continue with aspirin and statin Monitor CBC DVT prophylaxis: Lovenox subcu The patient is admitted with an anticipated fewer than 2 midnight stay for evaluation of chest pain CODE STATUS: Full Code Discussed with: Patient Anticipated discharge place: Home Past Medical History Past Medical History: No Reported History History of Any Multi-Drug Resistant Organisms: None Reported Past Surgical History: Joint Replacement Past Psychological History: No Psychological Hx Reported Smoking Status: Current every day smoker Past Alcohol Use History: None Reported Past Drug Use History: None Reported Medications and Allergies Home Medications Medication Instructions Recorded Confirmed Type Albuterol Inhaler [Ventolin Hfa 2 puff INHALATION RT-Q4H PRN 01/18/25 01/18/25 History Inhaler] Allergies Allergy/AdvReac Type Severity Reaction Status Date / Time No Known Allergies Allergy Verified 01/18/25 20:43 Physical Exam Vitals: Vital Signs Temp Pulse Resp BP Pulse Ox 01/18/25 23:05 77 20 117/72 93 L 01/18/25 22:40 74 01/18/25 22:26 71 01/18/25 22:00 77 16 117/68 93 L 01/18/25 20:20 82 24 137/76 93 L 01/18/25 19:50 97.1 F L 90 18 169/87 95 Intake and Output 01/18/25 01/18/25 01/19/25 14:59 22:59 06:59 Other: Weight 45.359 kg Results CBC & Chem 7: 01/18/25 20:19 01/18/25 20:19 Labs: Abnormal Lab Results - Last 24 Hours (Table) 01/18/25 01/18/25 Range/Units 20:19 20:19 WBC 13.2 H (3.8-10.6) k/uL Plt Count 503 H (150-450) k/uL Neutrophils # 9.1 H (1.3-7.7) k/uL D-Dimer 1.11 H (<0.60) mg/L FEU
[2025-01-19] MEDS: ATORVASTATIN 80 MG TAB PO STA (00:42)
[2025-01-19 01:49] LABS: HCT 41.5 % (34.0-46.0); Hypochromasia Slight; MCH 30.7 pg (25.0-35.0); MCHC 31.4 g/dL (31.0-37.0); MCV 97.8 fL (80.0-100.0); Platelet Count 464 k/uL (150-450); RBC 4.24 m/uL (3.80-5.40); RDW 13.3 % (11.5-15.5); WBC 13.4 k/uL (3.8-10.6)
[2025-01-19 07:44] VITALS: BP 108/65; PULSE 58; RESP 19; TEMP 98
[2025-01-19 08:24] LABS: Chol/HDL Ratio 3.19 Ratio; LDL Cholesterol,Calculated 109.4 mg/dL (0.0-131.0); VLDL Calculation 11.38 mg/dL (5.00-40.00)
[2025-01-19] MEDS: KETOROLAC 15 MG/ML 1 ML VIAL IVP STA (08:54)
[2025-01-19] MEDS: ENOXAPARIN 40 MG/0.4 ML SYRINGE SQ SCH (08:55)
[2025-01-19] MEDS ORDERED: ASPIRIN 81 MG PO SCH (09:00)
[2025-01-19] MEDS ORDERED: ASPIRIN 325 MG TAB PO SCH (09:00)
[2025-01-19] MEDS: LIDOCAINE VISCOUS 2% 15 ML CUP PO ONE (09:07)
[2025-01-19] MEDS: MAG HYDROX/AL HYDROX/SIMETH 30 ML CUP PO STA (09:07)
[2025-01-19] MEDS: HYOSCYAMINE ELIXIR 250 MCG/10 ML BTL PO STA (09:07)
--- NOTE | 2025-01-19 10:01 | P.DS ---
Providers Date of admission: 01/18/25 22:25 Expected date of discharge: 01/19/25 Attending physician: Annie Nava MD Consults: 01/18/25 22:25 Consult Physician Routine Consulting Provider: Toy Zapata Consult Reason/Comments: chest pain Do you want consulting provider notified?: Yes Primary care physician: Katelin [facility] Course: Discharge Diagnosis: Chest pain, acute coronary event ruled out Elevated D-dimer, CTA negative for PE Asthma/COPD, not in acute exacerbation Nicotine dependence, recommend smoking cessation. Thrombocytosis, improved with gentle IV fluid hydration Hospital Course: Patient is a very pleasant 69-year-old female with a past medical history of as thma/COPD and continued nicotine dependence. She presented to the emergency department on 01/18/2025 with a chief complaint of chest pain. Upon arrival to our facility, patient underwent evaluation in the emergency department. Vital signs upon arrival show blood pressure 169/87, heart rate 90, respiratory rate 18, temp 97.1 F, and SpO2 of 95% on room air. EKG completed showing normal sinus rhythm 82 bpm with no noted T wave or ST abnormality showing no signs of acute ischemia upon personal review and interpretation. Chest x-ray completed showing chronic changes but negative for acute cardiopulmonary process. Labs completed and reviewed. CBC showing mild leukocytosis with WBC count of 13.2 and thrombocytosis with platelet count of 503. Coagulation profile showing elevated D-dimer of 1.11. BMP unremarkable. Blood glucose 95. Magnesium 2.1. Liver profile unremarkable. Troponin was negative at less than 0.012 and proBNP was 133. CTA chest completed negative for acute pulmonary emboli showing no evidence for thoracic aortic aneurysm or dissection. Patient admitted under our services with consultation to cardiology. Troponins trended overnight all negative at less than 0.012 x 3 draws. Lipid profile was unremarkable. Patient was evaluated by cardiology ruling out acute coronary event stating no need for further cardiac workup at this time and clearing patient from cardiac perspective for discharge. Patient reports chest/back pain resolved after administration of Toradol administered this morning and denies having any further questions, needs, complaints or concerns at this time. Patient medically optimized for discharge and to follow-up outpatient with PCP in 1 to 2 days and with radiologic technology program director in 1 to 2 weeks. Physical exam: Patient seen and examined at bedside. Vital signs reviewed and stable. General: Nontoxic, no distress and appears stated age. Derm: Skin warm and dry, normal coloration for ethnicity. Head: Atraumatic, normocephalic and symmetric. Eyes: EOM's intact, no lid lag, and anicteric sclera Mouth: no lip lesions, mucus membranes moist Cardiovascular: regular rate and rhythm with normal S1S2, no murmur, positive posterior tibial pulses bilaterally, and cap refill < 2 seconds. Lungs: Respirations even, regular, and unlabored on room air. Lungs CTA bilaterally, no rhonchi, no rales, no wheezing, and no accessory muscle usage. Abdominal: soft, nontender to palpation, no guarding, no appreciable organomegaly Ext: ROM intact. No gross muscle atrophy, no edema, no contractures Neuro: Speech clear, face symmetrical and CN II-XII grossly intact with no noted focal neuro deficits Psych: Alert and oriented to person, place, time, and situation. Appropriate and pleasant affect. A total of 33 minutes of time were spent preparing this complex discharge summary. Pt was discharged on 01/19/2025 at 9:59 AM Patient was seen independently by Nurse Practitioner. This document was prepared using [employer] dictation software. Please allow for errors in machinist class b while rare they do occur. Fady Michelle NP rendered care for this patient independently, reviewed the findings and plan as documented in the note above. I did not physically speak with or examine the patient on this date. Patient Condition at Discharge: Stable Plan - Discharge Summary New Discharge Prescriptions: New Atorvastatin [Lipitor] 20 mg PO HS 30 Days #30 tab Ketorolac [Toradol] 10 mg PO Q6HR PRN #12 tab PRN Reason: Pain Continue Albuterol Inhaler [Ventolin Hfa Inhaler] 2 puff INHALATION RT-Q4H PRN PRN Reason: Shortness Of Breath Discharge Medication List Albuterol Inhaler [Ventolin Hfa Inhaler] 2 puff INHALATION RT-Q4H PRN 01/18/25 [History] Atorvastatin [Lipitor] 20 mg PO HS 30 Days #30 tab 01/19/25 [Rx] Ketorolac [Toradol] 10 mg PO Q6HR PRN #12 tab 01/19/25 [Rx] Follow up Appointment(s)/Referral(s): Arnaldo Fong MD [STAFF PHYSICIAN] - 02/02/25 11:00 am Katelin Yoon MD [Primary Care Provider] - 1-2 days Patient Instructions/Handouts: Back Pain (GEN) Activity/Diet/Wound Care/Special Instructions: Activity: As tolerated. Take breaks as needed. Diet: Heart healthy and carb consistent diet. Avoid salts, or foods with hidden salts such as canned or boxed foods and frozen dinners. Extra salt makes your heart work harder and traps the fluid in your body for longer. Special Instructions: Take all of your medications as directed and remember to keep all of your doctor's appointments and follow-up as needed. Thank you for allowing us to participate in your care, it was truly a pleasure having you for our patient!!! Discharge Disposition: HOME SELF-CARE
--- NOTE | 2025-01-19 10:21 | P.CRDCN ---
History of Present Illness Consult date: 01/19/25 Consult reason: chest pain History of present illness: This is a 69-year-old female with no previous cardiac history and does not follow with a recovery coordinator and no significant past medical history. We have been asked to evaluate the patient for chest pain. Patient states that she developed chest pain at home and it was located under the left breast in the mid back area. Pain is much worse with deep breathing and any movement of her upper body. She states she thinks it is related to a muscle pull. Patient has significant discomfort with any movement. Blood pressure 108/65, heart rate 58, pulse ox 94% on room air. Patient has been started on aspirin and Lipitor 80 mg. -EKG: Sinus rhythm with no acute ST-T wave changes. -Chest x-ray: Chronic changes. -CTA of the chest showed no evidence of PE, no acute findings. Emphysema. -Laboratory studies: WBC 13.4, hemoglobin 13. CMP within normal limits. Troponin negative x 3. Triglycerides 56, cholesterol 176, LDL 109, HDL 55. -Home cardiac medications: None Review Of Systems: At the time of my exam: CONSTITUTIONAL: Denies fever or chills. HEENT: Denies blurred vision, vision changes, or eye pain. Denies hemoptysis CARDIOVASCULAR: Reports back pain and chest pain. Denies orthopnea. Denies PND. Denies palpitations RESPIRATORY: Denies shortness of breath. GASTROINTESTINAL: Denies abdominal pain. Denies nausea or vomiting. HEMATOLOGIC: Denies bleeding disorders. GENITOURINARY: Denies any blood in urine. SKIN: Denies puritis. Denies rash. Physical examination: Gen: This is a 69-year-old female in no acute distress VS: reviewed HEENT: Head is atraumatic, normocephalic. Pupils equal, round. Sclerae is anicteric. NECK: Supple. No JVD. LUNGS: Clear to auscultation. No wheezes or rhonchi. No intercostal retractions. HEART: Regular rate and rhythm. No murmur. ABDOMEN: Soft No tenderness. EXTREMITIES: No pedal edema. No calf tenderness. NEUROLOGICAL: Patient is awake, alert and oriented x3. Assessment: Atypical chest pain, acute coronary syndrome ruled out Musculoskeletal pain Plan: Decrease Lipitor to 20 mg daily Discontinue aspirin Patient is cleared for discharge from cardiology perspective. Follow-up with cardiology in 1 to 2 weeks. Nurse practitioner note has been reviewed, I agree with documented findings and plan of care. Patient was seen and examined. Past Medical History Past Medical History: No Reported History History of Any Multi-Drug Resistant Organisms: None Reported Past Surgical History: Joint Replacement Additional Past Surgical History / Comment(s): Hip replacement 2017 Past Anesthesia/Blood Transfusion Reactions: No Reported Reaction Past Psychological History: No Psychological Hx Reported Smoking Status: Current every day smoker Past Alcohol Use History: None Reported Past Drug Use History: None Reported Medications and Allergies Home Medications Medication Instructions Recorded Confirmed Type Albuterol Inhaler [Ventolin Hfa 2 puff INHALATION RT-Q4H PRN 01/18/25 01/18/25 History Inhaler] Atorvastatin [Lipitor] 20 mg PO HS 30 Days #30 tab 01/19/25 Rx Ketorolac [Toradol] 10 mg PO Q6HR PRN #12 tab 01/19/25 Rx Allergies Allergy/AdvReac Type Severity Reaction Status Date / Time No Known Allergies Allergy Verified 01/18/25 20:43 Physical Exam Vitals: Vital Signs Temp Pulse Pulse Resp BP BP BP 01/19/25 07:00 98.0 F 58 L 19 108/65 01/19/25 02:00 97.6 F 75 17 129/80 01/19/25 00:30 64 01/18/25 23:05 77 20 117/72 01/18/25 22:40 74 01/18/25 22:26 71 01/18/25 22:00 77 16 117/68 01/18/25 20:20 82 24 137/76 01/18/25 19:50 97.1 F L 90 18 169/87 Pulse Ox 01/19/25 07:00 94 L 01/19/25 02:00 94 L 01/19/25 00:30 01/18/25 23:05 93 L 01/18/25 22:40 01/18/25 22:26 01/18/25 22:00 93 L 01/18/25 20:20 93 L 01/18/25 19:50 95 Intake and Output 01/18/25 01/19/25 01/19/25 22:59 06:59 14:59 Other: # Voids 3 Weight 45.359 kg 45.359 kg Results 01/19/25 01:01/18/25 20:19 Cardiac Enzymes 01/18/25 01/18/25 01/18/25 Range/Units 20:19 20:19 22:30 AST 26 (14-36) U/L Troponin I <0.012 <0.012 (0.000-0.034) ng/mL 01/19/25 Range/Units 01:25 AST (14-36) U/L Troponin I <0.012 (0.000-0.034) ng/mL Coagulation 01/18/25 Range/Units 20:19 PT 10.3 (10.0-12.5) sec APTT 23.8 (22.0-30.0) sec CBC 01/18/25 01/19/25 Range/Units 20:19 01:25 WBC 13.2 H 13.4 H (3.8-10.6) k/uL RBC 4.64 4.24 (3.80-5.40) m/uL Hgb 13.9 13.0 (11.4-16.0) gm/dL Hct 44.8 41.5 (34.0-46.0) % Plt Count 503 H 464 H (150-450) k/uL Comprehensive Metabolic Panel 01/18/25 Range/Units 20:19 Sodium 138 (137-145) mmol/L Potassium 5.1 (3.5-5.1) mmol/L Chloride 101 (98-107) mmol/L Carbon Dioxide 25 (22-30) mmol/L BUN 17 (7-17) mg/dL Creatinine 0.70 (0.52-1.04) mg/dL Glucose 95 (74-99) mg/dL Calcium 9.3 (8.4-10.2) mg/dL AST 26 (14-36) U/L ALT 17 (4-34) U/L Alkaline Phosphatase 116 (38-126) U/L Total Protein 7.7 (6.3-8.2) g/dL Albumin 4.6 (3.5-5.0) g/dL Current Medications Generic Name Dose Route Start Last Admin Trade Name Freq PRN Reason Stop Dose Admin Albuterol Sulfate 2.5 mg 01/18/25 22:26 Albuterol Nebulized 2.5 Mg/3 Ml INHALATION RT-Q4H PRN Shortness Of Breath Aspirin 325 mg 01/19/25 09:00 Aspirin 325 Mg Tab PO DAILY [facility] Aspirin 81 mg 01/19/25 09:00 Aspirin 81 Mg PO DAILY [facility] Atorvastatin Calcium 80 mg 01/19/25 21:00 Atorvastatin 80 Mg Tab PO HS [facility] Enoxaparin Sodium 40 mg 01/19/25 09:00 Enoxaparin 40 Mg/0.4 Ml Syringe SQ DAILY [facility] Nitroglycerin 0.4 mg 01/18/25 22:24 Nitroglycerin Sl Tabs 0.4 Mg Tab SUBLINGUAL Q5M PRN Chest Pain Intake and Output 01/18/25 01/19/25 01/19/25 22:59 06:59 14:59 Other: # Voids 3 Weight 45.359 kg 45.359 kg 01/19/25 01:25 01/18/25 20:19
[2025-01-19] MEDS ORDERED: ATORVASTATIN 80 MG TAB PO SCH (21:00)
[2025-01-19] MEDS ORDERED: ATORVASTATIN 20 MG TAB PO SCH (21:00)
== END 2025-01-19 11:28 | disposition home or self-care (01) ==
LOC: EC 19:48 → 6NMEDSUR 22:25
PROVIDERS: ADMIT Internal Medicine; ATTEND Internal Medicine
DX: R07.89 Other chest pain (principal); J43.9 Emphysema, unspecified; D72.829 Elevated white blood cell count, unspecified; D75.839 Thrombocytosis, unspecified; R79.89 Other specified abnormal findings of blood chemistry; F17.200 Nicotine dependence, unspecified, uncomplicated
CPT/HCPCS: 96372; 96375; 96376; 96374; 99285; 36415; 94640; 93005; 85379; 83880; 80061; 80053; 83735; 84484 ×2; 85025; 85027; 85610; 85730; 71045; 71275; G0378 ×2; J2270; J1650; J1885; Q9967